=== PATIENT | male | born 1960 | race Caucasian/White ===

== ENCOUNTER 2017-10-21 10:27 | Outpatient (RCR) | payer MEDICARE, SELFPAY | END 2017-11-12 23:59 | LOC: DC 10:27 | PROVIDERS: Visit Provider Nurse Practitioner Family | DX: E11.9 Type 2 diabetes mellitus without complications (principal); Z71.3 Dietary counseling and surveillance | CPT/HCPCS: 97802 ==

== ENCOUNTER 2017-11-18 11:00 | Outpatient (RCR) | payer MEDICARE, SELFPAY | END 2017-11-18 11:01 | disposition home or self-care (01) | LOC: DC 11:00 | PROVIDERS: Visit Provider Nurse Practitioner Family | DX: E11.9 Type 2 diabetes mellitus without complications (principal); Z71.3 Dietary counseling and surveillance | CPT/HCPCS: 97803 ==